=== PATIENT | male | born 1955 | race Caucasian/White ===

== ENCOUNTER → 2019-02-28 | Day surgery (SDC) | payer BC ==
[~2019-02-28] MED LIST: Bacitracin Oint 1 GM U/D Packet ONE; Bupivacaine 0.5% 50 ML MDV ONE; Lidocaine 1% with EPINEPHrine 1:100,000 50 ML MDV ONE; Meropenem 500 MG SDV ONE; Midazolam 1 MG/ML 2 ML SDV ONE; Propofol 200 MG/20 ML SDV ONE; cefTRIAXone 2 GM in Sodium Chloride 0.9% 50 ML IV ONE; fentaNYL 100 MCG/2 ML SDV ONE
--- NOTE | 2019-02-28 19:26 | EDM.PDOC ---
ED HPI GENERAL MEDICAL PROBLEM - General Chief Complaint: Trauma Stated Complaint: DOG BITE VIA [facility] Time Seen by Provider: 02/28/19 19:13 Source of Information: Reports: Patient History Limitations: Reports: No Limitations - History of Present Illness INITIAL COMMENTS - FREE TEXT/NARRATIVE: This gentleman sustained a dog bite to his left forearm just a short while prior to arrival. The animal was his own dog the dog is up-to-date on immunizations the dog is a rescue dog and is uncertain why he decided to attack the patient as well as his . He last ate approximately 2-2:30 he had a salad and some nochos. - Related Data Allergies Allergy/AdvReac Type Severity Reaction Status Date / Time No Known Allergies Allergy Verified 02/28/19 19:19 Home Meds: Home Meds NK [No Known Home Meds] 02/28/19 [History] ED ROS GENERAL - Review of Systems Review Of Systems: ROS reveals no pertinent complaints other than HPI. ED EXAM, ANIMAL BITE - Physical Exam Exam: See Below Exam Limited By: No Limitations General Appearance: Alert, WD/WN, Mild Distress Eye Exam: Bilateral Eye: Normal Inspection Throat/Mouth: Normal Inspection Head: Atraumatic Neck: Normal Inspection Respiratory/Chest: Lungs Clear Cardiovascular: Regular Rate, Rhythm GI/Abdominal: Non-Tender (I think his body is a laxative big deal about) Extremities: Normal Inspection (C negative), Other (There is a laceration to the left forearm the anterior or ventral surface that the level of the intersection of the middle and distal thirds. Its transverse area approximately 4 cm long and extends deeply into the arm. There is a laceration approximately 3 cm long its on the dorsum of the proximal forearm. It also appears to be fairly. Neurovascular and tendon all appears to be intact. He has a good strong handgrip and extends his fingers normally.) Neurological: No Motor/Sensory Deficits Skin Exam: Other (C extremities above) Course - Vital Signs Last Recorded V/S: Last Vital Signs Temp 35.6 C 02/28/19 19:13 Pulse 55 L 02/28/19 19:13 Resp 16 02/28/19 19:13 BP 162/72 H 02/28/19 19:13 Pulse Ox 98 02/28/19 19:13 - Orders/Labs/Meds Orders: Active Orders 24 hr Category Date Time Status BASIC METABOLIC PANEL,BMP [CHEM] Urgent Lab 02/28/19 19:16 Ordered CBC WITH AUTO DIFF [HEME] Urgent Lab 02/28/19 19:16 Ordered cefTRIAXone [Rocephin] 2 gm Med 02/28/19 19:16 Ordered Sodium Chloride 0.9% [Normal Saline] 50 ml IV ONETIME Medication Orders Ceftriaxone Sodium 2 gm/ (Sodium Chloride) 50 mls @ 100 mls/hr IV ONETIME ONE Stop: 02/28/19 19:45 Meds: Medications Generic Name Dose Route Start Last Admin Trade Name Daya PRN Reason Stop Dose Admin Ceftriaxone Sodium 2 gm/ 50 mls @ 100 mls/hr 02/28/19 19:16 Sodium Chloride IV 02/28/19 19:45 ONETIME ONE - Re-Assessments/Exams Free Text/Narrative Re-Assessment/Exam: 02/28/19 19:[address] Martinez. We'll give him 2 g of Rocephin IV and we have called in the OR crew he'll be taken to the OR to wash this thing out. Labs are pending 02/28/19 19:25 Departure - Departure Time of Disposition: 19:31 Disposition: DC/Tfer to Other 70 Clinical Impression: Dog bite of forearm - Discharge Information Forms: ED Department Discharge - My Orders Last 24 Hours: My Active Orders 02/28/19 19:16 BASIC METABOLIC PANEL,BMP [CHEM] Urgent CBC WITH AUTO DIFF [HEME] Urgent cefTRIAXone [Rocephin] 2 gm Sodium Chloride 0.9% [Normal Saline] 50 ml IV ONETIME - Assessment/Plan Last 24 Hours: My Active Orders 02/28/19 19:16 BASIC METABOLIC PANEL,BMP [CHEM] Urgent CBC WITH AUTO DIFF [HEME] Urgent cefTRIAXone [Rocephin] 2 gm Sodium Chloride 0.9% [Normal Saline] 50 ml IV ONETIME
--- NOTE | 2019-03-04 14:29 | OR ---
CORRECTED REPORT DATE OF PROCEDURE: 02/28/2019 PREOPERATIVE DIAGNOSIS: Dog bites involving left forearm and right thumb. OPERATIVE PROCEDURE: Exploration and irrigation of dog bite injuries as follows: 1. Proximal volar left forearm with closure of flexor digitorum superficialis fascia and intermediate closure of subcutaneous tissue and skin (04535, [id number]). 2. Closure of flexor carpi ulnaris fascia and intermediate closure of overlying subcutaneous tissue and the skin of distal volar left forearm (47032, [id number]). 3. Intermediate closure of laceration of skin and subcutaneous tissue of dorsal aspect of left forearm (11476). 4. Closure of laceration of volar aspect of right thumb (94196). ANESTHESIA: Local plus IV sedation. INDICATIONS FOR PROCEDURE: This is a 64-year-old who was involved in a dog bite injury in the areas outlined above earlier today, presented to emergency room, and after evaluation, was felt to be best treated in the operating room. The patient received some IV Rocephin preoperatively. He is up to date on his tetanus status and is to undergo irrigation and closure of the above noted injuries. Potential risks including bleeding and infection were reviewed and the patient wishes to proceed. DETAILS OF PROCEDURE: The patient was taken to the operating room and some IV sedation was administered. Initially, the left forearm area was prepped and draped, and those areas were then irrigated with a meropenem-containing saline solution. Again, more proximal of the volar laceration in the forearm of the underlying fascia of flexor digitorum superficialis was divided. This was closed with a running 3-0 Vicryl stitch and the subcutaneous tissue approximated with some 4-0 Vicryl stitch and the skin with mary. Incisional length in this case was 4.5 cm. The more distal of volar laceration was then similarly addressed. This was little bit more on the ulnar aspect and appeared to be involving the laceration of flexor carpi ulnaris fascia. This was likewise closed with a 3-0 Vicryl stitch, the subcutaneous tissue with 4-0 Vicryl stitch, and skin with mary. The incision in this case was also 4.5 cm in length. On back of the forearm, the patient had a 4.0 cm laceration. This involved the skin and subcutaneous tissue, but no underlying fascia. This was closed with some 4-0 Vicryl stitch deep and mary for the skin. This incision was 4.0 cm. Finally, the patient had a laceration on the volar aspect of the right thumb. The thumb laceration was 2.2cm. This was then prepped and draped and anesthetized with 1% lidocaine mixed with Marcaine and a single deep stitch of 5-0 Vicryl stitch was placed and the skin then closed with 5-0 Prolene stitch. Dressing was applied to each of the incisions, and the patient was taken to the recovery room in satisfactory condition. The patient will be given some Augmentin orally today as well as a dose tomorrow morning and then initiated on a 5-day course of Augmentin 875 mg p.o. b.i.d. The patient lives in the [facility] and will be following up with personal physician regarding the staple and suture removal. Obie Martinez MD /[id number]
== END ==
LOC: JP.ED 19:07 → JP.SDS 19:42
PROVIDERS: ATTEND Surgery
DX: S51.852A Open bite of left forearm, initial encounter (principal); S61.051A Open bite of right thumb without damage to nail, initial encounter; W54.0XXA Bitten by dog, initial encounter
CPT/HCPCS: 12001; 12032; 25260; 36415; 80048; 85025; 96374; 99283; J0696; J2185; J2250; J2704; J3010; J3490; J7050; J2020

== ENCOUNTER 2019-03-04 15:50 | Inpatient (IN) | payer BC ==
[2019-03-04] MEDS ORDERED: Linezolid 600 MG in Premix Bag 1 BAG IV STA (15:52)
[2019-03-04] MEDS ORDERED: Lactated Ringers 1,000 ML IV SCH ×2 (16:00→18:48)
--- NOTE | 2019-03-04 16:21 | EDM.PDOC ---
ED HPI GENERAL MEDICAL PROBLEM - General Chief Complaint: General Stated Complaint: LEFT ARM INFECTION AFTER SURGERY Time Seen by Provider: 03/04/19 15:51 Source of Information: Reports: Patient History Limitations: Reports: No Limitations - History of Present Illness INITIAL COMMENTS - FREE TEXT/NARRATIVE: Dog bite from the 28 of February; went to OR; Given Rocephin and oral Augmentin; Red streaking going up arm, warm and firm currently States he feels "run down". No fever, nausea or vomiting; has some diarrhea attributed to the Augmentin. Sent here from [facility] Onset: Gradual Onset Date: 02/28/19 Location: Reports: Upper Extremity, Left Quality: Reports: Pressure Severity: Severe Improves with: Reports: None Worsens with: Reports: None Associated Symptoms: Reports: Other (fatigue) Treatments TRANSIT SPECIALIST: Reports: Other (see below) (antibiotics) Left Arm Pain Score (Numeric/FACES): 3 - Related Data Allergies Allergy/AdvReac Type Severity Reaction Status Date / Time No Known Allergies Allergy Verified 03/04/19 16:15 Home Meds: Home Meds NK [No Known Home Meds] 02/28/19 [History] Social & Family History - Caffeine Use Caffeine Use: Reports: Coffee Caffeine Use Comment: decaf coffee ED ROS GENERAL - Review of Systems Review Of Systems: See Below Constitutional: Reports: Fatigue Respiratory: Reports: No Symptoms Cardiovascular: Reports: No Symptoms GI/Abdominal: Reports: Diarrhea : Reports: No Symptoms Musculoskeletal: Reports: Arm Pain Skin: Reports: Erythema, Other (warmth) Neurological: Reports: No Symptoms Psychiatric: Reports: No Symptoms ED EXAM, GENERAL - Physical Exam Exam: See Below Exam Limited By: No Limitations General Appearance: Alert, WD/WN, No Apparent Distress Head: Atraumatic, Normocephalic Neck: Supple, Non-Tender, Full Range of Motion Respiratory/Chest: No Respiratory Distress, Lungs Clear, Normal Breath Sounds Cardiovascular: Regular Rate, Rhythm Peripheral Pulses: 4+: Radial (L), Radial (R) GI/Abdominal: Normal Bowel Sounds, Soft, Non-Tender Extremities: Arm Pain, Increased Warmth, Redness Neurological: Alert, Oriented, CN II-XII Intact, Normal Cognition, Normal Gait Psychiatric: Normal Affect, Normal Mood Skin Exam: Erythema, Increased Warmth, Wound/Incision Course - Vital Signs Last Recorded V/S: Last Vital Signs Temp 98.7 F 03/04/19 16:12 Pulse 83 03/04/19 17:30 Resp 16 03/04/19 17:30 BP 158/89 H 03/04/19 17:30 Pulse Ox 97 03/04/19 17:30 - Orders/Labs/Meds Orders: Active Orders 24 hr Category Date Time Status Vital Signs [RC] Q1H Care 03/04/19 15:53 Active CULTURE BLOOD [BC] Urgent Lab 03/04/19 16:00 Received CULTURE BLOOD [BC] Urgent Lab 03/04/19 16:10 Received Clindamycin Phosphate [Cleocin] 900 mg Med 03/04/19 18:00 Active Sodium Chloride 0.9% [Normal Saline] 100 ml IV Q8H Lactated Ringers [Ringers, Lactated] 1,000 ml Med 03/04/19 16:00 Active IV ASDIRECTED Blood Culture x2 Reflex Set [OM.PC] Urgent Oth 03/04/19 15:53 Ordered Medication Orders Lactated Ringer's (Ringers, Lactated) 1,000 mls @ 999 mls/hr IV ASDIRECTED [facility] Last Admin: 03/04/19 16:41 Dose: 999 mls/hr Clindamycin Phosphate 900 mg/ (Sodium Chloride) 106 mls @ 212 mls/hr IV Q8H [facility] Last Admin: 03/04/19 17:56 Dose: 212 mls/hr Labs: Laboratory Tests 03/04/19 03/04/19 03/04/19 Range/Units 16:00 16:00 16:00 WBC 6.0 (4.5-11.0) K/uL RBC 4.69 (4.30-5.90) M/uL Hgb 13.7 (12.0-15.0) g/dL Hct 40.1 (40.0-54.0) % MCV 86 (80-98) fL MCH 29 (27-31) pg MCHC 34 (32-36) % Plt Count 261 (150-400) K/uL Neut % (Auto) 70 H (36-66) % Lymph % (Auto) 15 L (24-44) % [place] % (Auto) 13 H (2-6) % Eos % (Auto) 2 (2-4) % Baso % (Auto) 0 (0-1) % Sodium 140 (140-148) mmol/L Potassium 3.9 (3.6-5.2) mmol/L Chloride 104 (100-108) mmol/L Carbon Dioxide 27 (21-32) mmol/L Anion Gap 8.7 (5.0-14.0) mmol/L BUN 21 H (7-18) mg/dL Creatinine 1.0 (0.8-1.3) mg/dL Est Cr Clr Drug Dosing 77.06 mL/min Estimated GFR (MDRD) > 60 (>60) Glucose 142 H (74-106) mg/dL Lactic Acid 1.4 (0.4-2.0) mmol/L Calcium 9.0 (8.5-10.1) mg/dL Total Bilirubin 0.8 (0.2-1.0) mg/dL AST 85 H (15-37) U/L ALT 198 H (12-78) U/L Alkaline Phosphatase 173 H (46-116) U/L C-Reactive Protein 6.77 H (0.0-0.3) mg/dL Total Protein 7.4 (6.4-8.2) g/dL Albumin 3.4 (3.4-5.0) g/dL Globulin 4.0 H (2.3-3.5) g/dL Albumin/Globulin Ratio 0.9 L (1.2-2.2) Meds: Medications Generic Name Dose Route Start Last Admin Trade Name Freq PRN Reason Stop Dose Admin Lactated Ringer's 1,000 mls @ 999 mls/hr 03/04/19 16:00 03/04/19 16:41 Ringers, Lactated IV 999 mls/hr ASDIRECTED MEGAN Administration Clindamycin Phosphate 900 mg/ 106 mls @ 212 mls/hr 03/04/19 18:00 03/04/19 17 :56 Sodium Chloride IV 212 mls/hr Q8H MEGAN Administration Discontinued Medications Generic Name Dose Route Start Last Admin Trade Name Freq PRN Reason Stop Dose Admin Levofloxacin/Dextrose 750 mg/ 150 mls @ 150 mls/hr 03/04/19 16:30 03/04/19 16 :47 Premix IV 03/04/19 17:29 150 mls/hr ONETIME ONE Administration Departure - Departure Time of Disposition: 18:41 Disposition: Admitted As Inpatient 66 Condition: Fair Clinical Impression: Cellulitis of arm, left - Discharge Information *PRESCRIPTION DRUG MONITORING PROGRAM REVIEWED*: Not Applicable *COPY OF PRESCRIPTION DRUG MONITORING REPORT IN PATIENT BRITTA: Not Applicable - Problem List & Annotations (1) Cellulitis of arm, left SNOMED Code(s): 433373635 Code(s): L03.114 - CELLULITIS OF LEFT UPPER LIMB Status: Acute Priority: Medium Current Visit: Yes (2) Dog bite of forearm SNOMED Code(s): 887193392 Code(s): S51.859A - OPEN BITE OF UNSPECIFIED FOREARM, INITIAL ENCOUNTER; W54.0XXA - BITTEN BY DOG, INITIAL ENCOUNTER Status: Acute Current Visit: No
[2019-03-04] MEDS ORDERED: Levofloxacin/Dextrose 5%-Water 750 MG in Premix Bag 1 BAG IV ONE (16:30)
--- NOTE | 2019-03-04 17:40 | PCM.HP ---
H&P History of Present Illness - General Date of Service: 03/04/19 Admit Problem/Dx: Admission Diagnosis/Problem Admission Diagnosis/Problem Cellulitis Source of Information: Patient, Provider History Limitations: Reports: No Limitations - History of Present Illness Initial Comments - Free Text/Narative: Mr. Hardy is a 64-year-old gentleman who was admitted through the emergency department with cellulitis of his left arm secondary to a dog bite. He was bit by his dog on February 28 and experience significant puncture wounds and laceration. He was seen and evaluated in the emergency department and wounds were surgically closed by Dr. Martinez. He is up-to-date with his tetanus vaccination. After the wounds were closed he was discharged to home on oral antibiotic therapy with Augmentin. Over the past 2 days has developed progressive erythema and swelling around the elbow and into the forearm. He has not had overt temperature elevation but has felt more weak and fatigued. On evaluation in the emergency department he was found to have obvious cellulitis. White blood cell count was normal, CRP elevated. Blood cultures were obtained and he was started on IV antibiotic therapy with levofloxacin and clindamycin. Left Arm Pain Score (Numeric/FACES): 3 - Related Data Allergies/Adverse Reactions: Allergies Allergy/AdvReac Type Severity Reaction Status Date / Time No Known Allergies Allergy Verified 03/04/19 16:15 Home Medications: Home Meds NK [No Known Home Meds] 02/28/19 [History] Past Medical History - Past Surgical History Dermatological Surgical History: Reports: None Social & Family History - Family History Family Medical History: Noncontributory - Tobacco Use Smoking Status *Q: Never Smoker Second Hand Smoke Exposure: No - Caffeine Use Caffeine Use: Reports: Coffee Caffeine Use Comment: decaf coffee - Alcohol Use Days Per Week of Alcohol Use: 3 Number of Drinks Per Day: 1 Total Drinks Per Week: 3 - Recreational Drug Use Recreational Drug Use: No H&P Review of Systems - Review of Systems: Review Of Systems: See Below General: Reports: Malaise, Weakness, Decreased Appetite. Denies: Fever, Chills HEENT: Reports: No Symptoms Pulmonary: Reports: No Symptoms Cardiovascular: Reports: No Symptoms Gastrointestinal: Reports: No Symptoms Genitourinary: Reports: No Symptoms Musculoskeletal: Reports: No Symptoms Skin: Reports: Other (Erythema of the left arm and elbow region, purulent drainage noted from wounds) Psychiatric: Reports: No Symptoms Neurological: Reports: No Symptoms Hematologic/Lymphatic: Reports: No Symptoms Immunologic: Reports: No Symptoms Exam - Exam Exam: See Below - Vital Signs Vital Signs: Last Vital Signs Temp 98.7 F 03/04/19 16:12 Pulse 83 03/04/19 17:30 Resp 16 03/04/19 17:30 BP 158/89 H 03/04/19 17:30 Pulse Ox 97 03/04/19 17:30 Weight: 196 lb 13.965 oz - Exam Quality Assessment: DVT Prophylaxis General: Alert, Oriented, Cooperative, Moderate Distress HEENT: Conjunctiva Clear, Hearing Intact, Mucosa Moist & [place], Posterior Pharynx Clear, Pupils Equal Neck: Supple, Trachea Midline, +2 Carotid Pulse wo Bruit Lungs: Clear to Auscultation, Normal Respiratory Effort Cardiovascular: Regular Rate, Regular Rhythm, Normal S1, Normal S2. No: Systolic Murmur, Diastolic Murmur GI/Abdominal Exam: Soft, Non-Tender, No Organomegaly, No Distention Back Exam: Normal Inspection, Full Range of Motion Extremities: Non-Tender, No Pedal Edema Skin: Other (Erythema left elbow region extending into the forearm, purulent- appearing drainage from wounds) Neurological: Cranial Nerves Intact, Strength Equal Bilateral, Normal Speech, Normal Tone, Sensation Intact. No: Focal Deficit Neuro Extensive - Mental Status: Alert, Oriented x3, Normal Mood/Affect, Normal Cognition, Memory Intact - Patient Data Lab Results Last 24 hrs: Laboratory Results - last 24 hr 03/04/19 03/04/19 03/04/19 Range/Units 16:00 16:00 16:00 WBC 6.0 (4.5-11.0) K/uL RBC 4.69 (4.30-5.90) M/uL Hgb 13.7 (12.0-15.0) g/dL Hct 40.1 (40.0-54.0) % MCV 86 (80-98) fL MCH 29 (27-31) pg MCHC 34 (32-36) % Plt Count 261 (150-400) K/uL Neut % (Auto) 70 H (36-66) % Lymph % (Auto) 15 L (24-44) % [place] % (Auto) 13 H (2-6) % Eos % (Auto) 2 (2-4) % Baso % (Auto) 0 (0-1) % Sodium 140 (140-148) mmol/L Potassium 3.9 (3.6-5.2) mmol/L Chloride 104 (100-108) mmol/L Carbon Dioxide 27 (21-32) mmol/L Anion Gap 8.7 (5.0-14.0) mmol/L BUN 21 H (7-18) mg/dL Creatinine 1.0 (0.8-1.3) mg/dL Est Cr Clr Drug Dosing 77.06 mL/min Estimated GFR (MDRD) > 60 (>60) Glucose 142 H (74-106) mg/dL Lactic Acid 1.4 (0.4-2.0) mmol/L Calcium 9.0 (8.5-10.1) mg/dL Total Bilirubin 0.8 (0.2-1.0) mg/dL AST 85 H (15-37) U/L ALT 198 H (12-78) U/L Alkaline Phosphatase 173 H (46-116) U/L C-Reactive Protein 6.77 H (0.0-0.3) mg/dL Total Protein 7.4 (6.4-8.2) g/dL Albumin 3.4 (3.4-5.0) g/dL Globulin 4.0 H (2.3-3.5) g/dL Albumin/Globulin Ratio 0.9 L (1.2-2.2) Result Diagrams: 03/04/19 16:00 03/04/19 16:00 *Q Meaningful Use (ADM) - VTE Risk Assess *Q Each Risk Factor Represents 1 Point: Obesity ( BMI > 25 kg/m2) Total Score 1 Point Risk Factors: 1 Each Risk Factor Represents 2 Points: Age 60 - 74 Years Total Score 2 Point Risk Factors: 2 Each Risk Factor Represents 3 Points: None Total Score 3 Point Risk Factors: 0 Each Risk Factor Represents 5 Points: None Total Score 5 Point Risk Factors: 0 Venous Thromboembolism Risk Factor Score *Q: 3 Problem List Initiated/Reviewed/Updated: Yes Orders Last 24hrs: Active Orders 24 hr Category Date Time Status Patient Status Manage Transfer [TRANSFER] Routine ADT 03/04/19 17:35 Ordered Vital Signs [RC] Q1H Care 03/04/19 15:53 Active CULTURE BLOOD [BC] Urgent Lab 03/04/19 16:00 Received CULTURE BLOOD [BC] Urgent Lab 03/04/19 16:10 Received Clindamycin Phosphate [Cleocin] 900 mg Med 03/04/19 18:00 Active Sodium Chloride 0.9% [Normal Saline] 100 ml IV Q8H Lactated Ringers [Ringers, Lactated] 1,000 ml Med 03/04/19 16:00 Active IV ASDIRECTED Blood Culture x2 Reflex Set [OM.PC] Urgent Oth 03/04/19 15:53 Ordered Resuscitation Status Routine Resus Stat 03/04/19 17:36 Ordered Medication Orders Lactated Ringer's (Ringers, Lactated) 1,000 mls @ 999 mls/hr IV ASDIRECTED [facility] Last Admin: 03/04/19 16:41 Dose: 999 mls/hr Clindamycin Phosphate 900 mg/ (Sodium Chloride) 106 mls @ 212 mls/hr IV Q8H [facility] Assessment/Plan Comment:: ASSESSMENT AND PLAN CELLULITIS LEFT ARM- secondary to dog bite, status post surgical repair wounds 4 days ago. Cellulitis has developed over the past 48 hours, appears to have drainage from surgical wounds. No obvious palpable areas of abscess. -Blood cultures pending -IV fluids for hydration -IV clindamycin and levofloxacin, pending culture results -Surgical follow-up per Dr. Martinez in a.m. MAINTENANCE ISSUES -DVT prophylaxis; Lovenox 40 mg subcutaneous daily -GI prophylaxis; not indicated -Camacho catheter; not indicated -Nutrition; regular diet -Nicotine dependence; not required CODE STATUS-FULL CODE ADMISSION STATUS-patient will be admitted to inpatient status, expect at least a 2 night hospital stay for evaluation and management of problems as outlined above. At the time of this admission I do not reasonably expected evaluation and management of this problem will require more than a 96 hour hospital stay. DISPOSITION-anticipate discharge to home after the hospital stay. PRIMARY CARE PROVIDER-he is from the [facility] and receives health care there
[2019-03-04] MEDS ORDERED: Clindamycin Phosphate 900 MG in Sodium Chloride 0.9% 100 ML IV SCH (18:00)
[2019-03-04] MEDS ORDERED: Polyethylene Glycol 3350 Powder 17 GM Packet PO PRN (18:48)
[2019-03-04] MEDS ORDERED: oxyCODONE 5 MG Tab PO PRN (18:48)
[2019-03-04] MEDS ORDERED: Ondansetron 4 MG/2 ML SDV IV PRN (18:48)
[2019-03-04] MEDS ORDERED: Sodium Chloride 0.9% 10 ML Syringe FLUSH PRN (18:48)
[2019-03-04] MEDS ORDERED: Acetaminophen 325 MG Tab PO PRN (18:48)
[2019-03-04] MEDS: Lactobacillus Rhamnosus GG (Probiotic) Cap PO SCH (19:50)
[2019-03-04] MEDS: Enoxaparin 40 MG/0.4 ML Syringe SUBCUT SCH (19:50)
[2019-03-04] MEDS: Bacitracin Oint 28.35 GM Tube TOP PRN (20:24)
[2019-03-05] MEDS: Clindamycin Phosphate 900 MG in Sodium Chloride 0.9% 100 ML IV SCH ×3 (02:06→18:29)
[2019-03-05] MEDS: Enoxaparin 40 MG/0.4 ML Syringe SUBCUT SCH (03:16)
[2019-03-05] MEDS: Lactobacillus Rhamnosus GG (Probiotic) Cap PO SCH ×3 (03:17→20:23)
[2019-03-05] MEDS: Bacitracin Oint 28.35 GM Tube TOP PRN (08:31)
--- NOTE | 2019-03-05 08:36 | PN ---
DATE OF SERVICE: 03/05/2019 SUBJECTIVE: Bruce was admitted for cellulitis in his left arm. Yesterday, he did have a dog bite, left arm, which was closed using yusef, and he also had a bite on his right thumb. He did develop significant cellulitis, currently on Levaquin and clindamycin. He reports his pain is controlled. Afebrile. REVIEW OF SYSTEMS: Remainder of review of systems negative for any pertinent positives and negatives. OBJECTIVE: GENERAL: Bruce Hardy is a 64-year-old male. He is alert and orientated. VITAL SIGNS: TPR; 97.7, 83, 18. Blood pressure 172/84. HEENT: Negative. NECK: Supple. HEART: Regular rate and rhythm. LUNGS: Clear. EXTREMITIES: Left arm cellulitis is resolving, shows minimal improvement according to the areas marked. Dressing was taken down by Obie Martinez M.D. Yusef intact in the bite choe. There is no drainage from those areas. Lower extremities without peripheral edema. ASSESSMENT: Cellulitis, left arm, secondary to dog bite. PLAN: 1. Dressing off, december shower. 2. Change dressing once daily and p.r.n. 3. Continue antibiotic therapy per Fabricio Marsh M.D. 4. We will evaluate p.r.n. or in a.m. Peggy Purvis PA-C /[id number]
[2019-03-05] MEDS ORDERED: Magnesium Sulfate/Water 2 GM in Premix Bag 1 BAG IV ONE (10:00)
--- NOTE | 2019-03-05 13:04 | PCM.PN ---
- General Info Date of Service: 03/05/19 Subjective Update: Mr. Hardy has been stable since admission, vital signs have been good and he has remained afebrile. White blood cell count remains within normal range, he reports less pain in the arm. There has been no significant improvement in the area of cellulitis since yesterday but the involved skin appears to be less red and is certainly less tender to palpation. - Review of Systems General: Denies: Fever, Weakness, Chills Pulmonary: Reports: No Symptoms Cardiovascular: Reports: No Symptoms Gastrointestinal: Reports: No Symptoms - Patient Data Vitals - Most Recent: Last Vital Signs Temp 97.7 F 03/05/19 10:52 Pulse 72 03/05/19 10:52 Resp 18 03/05/19 10:52 BP 144/74 H 03/05/19 10:52 Pulse Ox 98 03/05/19 10:52 Weight - Most Recent: 196 lb 13.965 oz I&O - Last 24 Hours: Intake & Output 03/04/19 03/05/19 03/05/19 22:59 06:59 14:59 Intake Total 2248 726 Balance 2248 726 Lab Results Last 24 Hours: Laboratory Results - last 24 hr 03/04/19 03/04/19 03/04/19 Range/Units 16:00 16:00 16:00 WBC 6.0 (4.5-11.0) K/uL RBC 4.69 (4.30-5.90) M/uL Hgb 13.7 (12.0-15.0) g/dL Hct 40.1 (40.0-54.0) % MCV 86 (80-98) fL MCH 29 (27-31) pg MCHC 34 (32-36) % Plt Count 261 (150-400) K/uL Neut % (Auto) 70 H (36-66) % Lymph % (Auto) 15 L (24-44) % [place] % (Auto) 13 H (2-6) % Eos % (Auto) 2 (2-4) % Baso % (Auto) 0 (0-1) % Sodium 140 (140-148) mmol/L Potassium 3.9 (3.6-5.2) mmol/L Chloride 104 (100-108) mmol/L Carbon Dioxide 27 (21-32) mmol/L Anion Gap 8.7 (5.0-14.0) mmol/L BUN 21 H (7-18) mg/dL Creatinine 1.0 (0.8-1.3) mg/dL Est Cr Clr Drug Dosing 77.06 mL/min Estimated GFR (MDRD) > 60 (>60) Glucose 142 H (74-106) mg/dL Lactic Acid 1.4 (0.4-2.0) mmol/L Calcium 9.0 (8.5-10.1) mg/dL Magnesium (1.8-2.4) mg/dL Total Bilirubin 0.8 (0.2-1.0) mg/dL AST 85 H (15-37) U/L ALT 198 H (12-78) U/L Alkaline Phosphatase 173 H (46-116) U/L C-Reactive Protein 6.77 H (0.0-0.3) mg/dL Total Protein 7.4 (6.4-8.2) g/dL Albumin 3.4 (3.4-5.0) g/dL Globulin 4.0 H (2.3-3.5) g/dL Albumin/Globulin Ratio 0.9 L (1.2-2.2) 03/05/19 03/05/19 Range/Units 05:10 05:10 WBC 6.5 (4.5-11.0) K/uL RBC 4.44 (4.30-5.90) M/uL Hgb 13.1 (12.0-15.0) g/dL Hct 38.2 L (40.0-54.0) % MCV 86 (80-98) fL MCH 30 (27-31) pg MCHC 34 (32-36) % Plt Count 259 (150-400) K/uL Neut % (Auto) 63 (36-66) % Lymph % (Auto) 21 L (24-44) % [place] % (Auto) 13 H (2-6) % Eos % (Auto) 3 (2-4) % Baso % (Auto) 0 (0-1) % Sodium 139 L (140-148) mmol/L Potassium 4.4 (3.6-5.2) mmol/L Chloride 104 (100-108) mmol/L Carbon Dioxide 26 (21-32) mmol/L Anion Gap 13.4 (5.0-14.0) mmol/L BUN 20 H (7-18) mg/dL Creatinine 1.0 (0.8-1.3) mg/dL Est Cr Clr Drug Dosing 77.06 mL/min Estimated GFR (MDRD) > 60 (>60) Glucose 113 H (74-106) mg/dL Lactic Acid (0.4-2.0) mmol/L Calcium 9.3 (8.5-10.1) mg/dL Magnesium 1.7 L (1.8-2.4) mg/dL Total Bilirubin (0.2-1.0) mg/dL AST (15-37) U/L ALT (12-78) U/L Alkaline Phosphatase (46-116) U/L C-Reactive Protein (0.0-0.3) mg/dL Total Protein (6.4-8.2) g/dL Albumin (3.4-5.0) g/dL Globulin (2.3-3.5) g/dL Albumin/Globulin Ratio (1.2-2.2) Med Orders - Current: Current Medications Acetaminophen (Tylenol) 650 mg PO Q4H PRN PRN Reason: Pain (Mild 1-3)/fever Bacitracin (Bacitracin Oint) 0 gm TOP TID PRN PRN Reason: Inflammation Last Admin: 03/05/19 08:31 Dose: 1 applic Enoxaparin Sodium (Lovenox) 40 mg SUBCUT Q24H [facility] Clindamycin Phosphate 900 mg/ (Sodium Chloride) 106 mls @ 200 mls/hr IV Q8H [facility] Last Admin: 03/05/19 09:39 Dose: 200 mls/hr Levofloxacin/Dextrose 750 mg/ (Premix) 150 mls @ 100 mls/hr IV Q24H [facility] Lactobacillus Rhamnosus (Culturelle) 1 cap PO BID [facility] Last Admin: 03/05/19 08:32 Dose: 1 cap Ondansetron HCl (Zofran) 4 mg IV Q4H PRN PRN Reason: Nausea/Vomiting Oxycodone HCl (Oxycodone) 5 mg PO Q4H PRN PRN Reason: Pain (moderate 4-6) Polyethylene Glycol (Miralax) 17 gm PO DAILY PRN PRN Reason: Constipation Sodium Chloride (Saline Flush) 10 ml FLUSH ASDIRECTED PRN PRN Reason: Keep Vein Open Discontinued Medications Enoxaparin Sodium (Lovenox) 40 mg SUBCUT DAILY [facility] Last Admin: 03/05/19 03:16 Dose: Not Given Lactated Ringer's (Ringers, Lactated) 1,000 mls @ 999 mls/hr IV ASDIRECTED [facility] Last Admin: 03/04/19 16:41 Dose: 999 mls/hr Levofloxacin/Dextrose 750 mg/ (Premix) 150 mls @ 150 mls/hr IV ONETIME ONE Stop: 03/04/19 17:29 Last Admin: 03/04/19 16:47 Dose: 150 mls/hr Clindamycin Phosphate 900 mg/ (Sodium Chloride) 106 mls @ 212 mls/hr IV Q8H [facility] Last Admin: 03/04/19 17:56 Dose: 212 mls/hr Lactated Ringer's (Ringers, Lactated) 1,000 mls @ 125 mls/hr IV ASDIRECTED [facility] Last Admin: 03/05/19 04:48 Dose: 125 mls/hr Magnesium Sulfate 2 gm/ Premix 50 mls @ 25 mls/hr IV ONETIME ONE Stop: 03/05/19 11:59 Last Admin: 03/05/19 10:21 Dose: 25 mls/hr - Exam Quality Assessment: DVT Prophylaxis General: Alert, Oriented, Cooperative, Mild Distress Lungs: Clear to Auscultation, Normal Respiratory Effort Cardiovascular: Regular Rate, Regular Rhythm, No Murmurs GI/Abdominal Exam: Soft, Non-Tender, No Organomegaly, No Distention Extremities: Arm Pain, Increased Warmth, Redness - Problem List Review Problem List Initiated/Reviewed/Updated: Yes - My Orders Last 24 Hours: My Active Orders 03/04/19 17:36 Resuscitation Status Routine 03/04/19 18:48 Patient Status [ADT] Routine Ambulate [RC] QID Intake and Output [RC] QSHIFT Notify Provider Consults [RC] ASDIRECTED Notify Provider Vital Signs [RC] ASDIRECTED Oxygen Therapy [RC] PRN Peripheral IV Care [RC] . DIRECTED Up ad Joseline [RC] ASDIRECTED Up to Chair [RC] QID Vital Signs [RC] Q4H Consult to Physician [CONS] Routine Acetaminophen [Tylenol] 650 mg PO Q4H PRN Lactobacillus Rhamnosus GG [Culturelle] 1 cap PO BID Ondansetron [Zofran] 4 mg IV Q4H PRN Polyethylene Glycol 3350 [MiraLAX] 17 gm PO DAILY PRN Sodium Chloride 0.9% [Saline Flush] 10 ml FLUSH ASDIRECTED PRN oxyCODONE 5 mg PO Q4H PRN Peripheral IV Insertion Adult [OM.PC] Routine 03/04/19 Dinner Regular Diet [DIET] 03/05/19 02:00 Clindamycin Phosphate [Cleocin] 900 mg Sodium Chloride 0.9% [Normal Saline] 100 ml IV Q8H 03/05/19 12:59 Convert IV to Saline Lock [OM.PC] Routine 03/05/19 17:00 Levofloxacin/Dextrose 5%-Water [Levaquin in D5W 750 MG/150 ML] 750 mg Premix Bag 1 bag IV Q24H 03/05/19 18:00 Enoxaparin [Lovenox] 40 mg SUBCUT Q24H 03/06/19 05:00 BASIC METABOLIC PANEL,BMP [CHEM] Timed MAGNESIUM [CHEM] Timed - Plan Plan:: ASSESSMENT AND PLAN CELLULITIS LEFT ARM- secondary to dog bite, status post surgical repair wounds 5 days ago. Modest improvement with less erythema and tenderness to palpation. -Blood cultures pending -Saline lock IV -IV clindamycin and levofloxacin, pending culture results -Surgical follow-up per Dr. Martinez MAINTENANCE ISSUES -DVT prophylaxis; Lovenox 40 mg subcutaneous daily -GI prophylaxis; not indicated -Camacho catheter; not indicated -Nutrition; regular diet -Nicotine dependence; not required CODE STATUS-FULL CODE ADMISSION STATUS-patient will be admitted to inpatient status, expect at least a 2 night hospital stay for evaluation and management of problems as outlined above. At the time of this admission I do not reasonably expected evaluation and management of this problem will require more than a 96 hour hospital stay. DISPOSITION-anticipate discharge to home after the hospital stay. PRIMARY CARE PROVIDER-he is from the [facility] and receives health care there
[2019-03-05] MEDS: Levofloxacin/Dextrose 5%-Water 750 MG in Premix Bag 1 BAG IV SCH (16:48)
[2019-03-05] MEDS ORDERED: Enoxaparin 40 MG/0.4 ML Syringe SUBCUT SCH (18:00)
[2019-03-06] MEDS: Clindamycin Phosphate 900 MG in Sodium Chloride 0.9% 100 ML IV SCH ×3 (01:41→18:35)
--- NOTE | 2019-03-06 09:04 | PN ---
DATE OF SERVICE: 03/06/2019 SUBJECTIVE: Bruce states his pain is controlled. He has 1 area from his left forearm incision that has drained very minimally on the 4x4 dressing. Dressing was taken down by Obie Martinez MD. He can leave it open to air. Pain is controlled. Area of cellulitis remains to be pink, a little bit less swollen. The area shows minimal improvement of pinkness in the marked area. REVIEW OF SYSTEMS: Remainder of review of systems negative for any pertinent positives and negatives. OBJECTIVE: GENERAL: Bruce Hardy is a 64-year-old male. VITAL SIGNS: TPR 97.2, 81, 16 and blood pressure 138/80. HEENT: Negative. NECK: Supple. HEART: Regular rate and rhythm. LUNGS: Clear. EXTREMITIES: Left arm remains about the same. Yusef intact. There is minimal drainage from 1 of stapled incision. Lower extremities without peripheral edema. ASSESSMENT: Cellulitis, left arm secondary to dog bite. PLAN: 1. May leave dressings off, open to air. 2. We will evaluate p.r.n. or in a.m. Peggy Purvis PA-C /[id number]
[2019-03-06] MEDS: Lactobacillus Rhamnosus GG (Probiotic) Cap PO SCH ×2 (09:07→21:01)
--- NOTE | 2019-03-06 14:27 | PCM.PN ---
- General Info Date of Service: 03/06/19 Subjective Update: Mr. Hardy has remained stable over the last 24 hours with no significant temperature elevation and stable vital signs. He notes less pain and swelling of the left arm over the past few days. Functional Status: Reports: Tolerating Diet, Ambulating, Urinating - Review of Systems General: Denies: Fever, Chills Pulmonary: Reports: No Symptoms Cardiovascular: Reports: No Symptoms Gastrointestinal: Reports: No Symptoms Skin: Reports: Other (Erythema swelling left forearm and elbow region) - Patient Data Vitals - Most Recent: Last Vital Signs Temp 96.2 F 03/06/19 10:42 Pulse 66 03/06/19 10:42 Resp 16 03/06/19 10:42 BP 119/75 03/06/19 10:42 Pulse Ox 97 03/06/19 10:42 Weight - Most Recent: 196 lb 13.965 oz I&O - Last 24 Hours: Intake & Output 03/05/19 03/06/19 03/06/19 22:59 06:59 14:59 Intake Total 1026 340 706 Balance 1026 340 706 Lab Results Last 24 Hours: Laboratory Results - last 24 hr 03/06/19 Range/Units 05:49 Sodium 140 (140-148) mmol/L Potassium 4.3 (3.6-5.2) mmol/L Chloride 105 (100-108) mmol/L Carbon Dioxide 26 (21-32) mmol/L Anion Gap 9.2 (5.0-14.0) mmol/L BUN 19 H (7-18) mg/dL Creatinine 1.1 (0.8-1.3) mg/dL Est Cr Clr Drug Dosing 70.05 mL/min Estimated GFR (MDRD) > 60 (>60) Glucose 109 H (74-106) mg/dL Calcium 8.9 (8.5-10.1) mg/dL Magnesium 1.8 (1.8-2.4) mg/dL [place] Results Last 24 Hours: Microbiology 03/04/19 16:10 Aerobic Blood Culture - Preliminary Blood - Arm, Right NO GROWTH AFTER 1 DAY Anaerobic Blood Culture - Preliminary NO GROWTH AFTER 1 DAY 03/04/19 16:00 Aerobic Blood Culture - Preliminary Blood - Arm, Right NO GROWTH AFTER 1 DAY Anaerobic Blood Culture - Preliminary NO GROWTH AFTER 1 DAY Med Orders - Current: Current Medications Acetaminophen (Tylenol) 650 mg PO Q4H PRN PRN Reason: Pain (Mild 1-3)/fever Bacitracin (Bacitracin Oint) 0 gm TOP TID PRN PRN Reason: Inflammation Last Admin: 03/05/19 08:31 Dose: 1 applic Clindamycin Phosphate 900 mg/ (Sodium Chloride) 106 mls @ 200 mls/hr IV Q8H [facility] Last Admin: 03/06/19 10:00 Dose: 200 mls/hr Levofloxacin/Dextrose 750 mg/ (Premix) 150 mls @ 100 mls/hr IV Q24H [facility] Last Admin: 03/05/19 16:48 Dose: 100 mls/hr Lactobacillus Rhamnosus (Culturelle) 1 cap PO BID [facility] Last Admin: 03/06/19 09:07 Dose: 1 cap Ondansetron HCl (Zofran) 4 mg IV Q4H PRN PRN Reason: Nausea/Vomiting Oxycodone HCl (Oxycodone) 5 mg PO Q4H PRN PRN Reason: Pain (moderate 4-6) Polyethylene Glycol (Miralax) 17 gm PO DAILY PRN PRN Reason: Constipation Sodium Chloride (Saline Flush) 10 ml FLUSH ASDIRECTED PRN PRN Reason: Keep Vein Open Discontinued Medications Enoxaparin Sodium (Lovenox) 40 mg SUBCUT DAILY [facility] Last Admin: 03/05/19 03:16 Dose: Not Given Enoxaparin Sodium (Lovenox) 40 mg SUBCUT Q24H [facility] Last Admin: 03/05/19 17:00 Dose: Not Given Lactated Ringer's (Ringers, Lactated) 1,000 mls @ 999 mls/hr IV ASDIRECTED [facility] Last Admin: 03/04/19 16:41 Dose: 999 mls/hr Levofloxacin/Dextrose 750 mg/ (Premix) 150 mls @ 150 mls/hr IV ONETIME ONE Stop: 03/04/19 17:29 Last Admin: 03/04/19 16:47 Dose: 150 mls/hr Clindamycin Phosphate 900 mg/ (Sodium Chloride) 106 mls @ 212 mls/hr IV Q8H [facility] Last Admin: 03/04/19 17:56 Dose: 212 mls/hr Lactated Ringer's (Ringers, Lactated) 1,000 mls @ 125 mls/hr IV ASDIRECTED [facility] Last Admin: 03/05/19 04:48 Dose: 125 mls/hr Magnesium Sulfate 2 gm/ Premix 50 mls @ 25 mls/hr IV ONETIME ONE Stop: 03/05/19 11:59 Last Admin: 03/05/19 10:21 Dose: 25 mls/hr - Exam Quality Assessment: DVT Prophylaxis General: Alert, Oriented, Cooperative, No Acute Distress Lungs: Clear to Auscultation, Normal Respiratory Effort Cardiovascular: Regular Rate, Regular Rhythm, No Murmurs GI/Abdominal Exam: Soft, Non-Tender, No Organomegaly, No Distention Extremities: Increased Warmth, Redness, Other (Area of cellulitis slowly receding with less erythema and warmth.) - Problem List Review Problem List Initiated/Reviewed/Updated: Yes - My Orders Last 24 Hours: My Active Orders 03/05/19 17:00 Levofloxacin/Dextrose 5%-Water [Levaquin in D5W 750 MG/150 ML] 750 mg Premix Bag 1 bag IV Q24H SCD [Sequential Compression Device] [OM.PC] Routine - Plan Plan:: ASSESSMENT AND PLAN CELLULITIS LEFT ARM- secondary to dog bite, status post surgical repair wounds 6 days ago. Further improvement in cellulitis over the last 24 hours with less swelling, erythema, and warmth -Blood cultures pending -Saline lock IV -IV clindamycin and levofloxacin, pending culture results -Surgical follow-up per Dr. Martinez MAINTENANCE ISSUES -DVT prophylaxis; Lovenox 40 mg subcutaneous daily -GI prophylaxis; not indicated -Camacho catheter; not indicated -Nutrition; regular diet -Nicotine dependence; not required CODE STATUS-FULL CODE ADMISSION STATUS-patient will be admitted to inpatient status, expect at least a 2 night hospital stay for evaluation and management of problems as outlined above. At the time of this admission I do not reasonably expected evaluation and management of this problem will require more than a 96 hour hospital stay. DISPOSITION-anticipate discharge to home after the hospital stay. PRIMARY CARE PROVIDER-he is from the [facility] and receives health care there
[2019-03-06] MEDS: Levofloxacin/Dextrose 5%-Water 750 MG in Premix Bag 1 BAG IV SCH (17:01)
[2019-03-07] MEDS: Clindamycin Phosphate 900 MG in Sodium Chloride 0.9% 100 ML IV SCH ×2 (01:43→10:21)
--- NOTE | 2019-03-07 08:10 | PN ---
DATE OF SERVICE: 03/07/2019 SUBJECTIVE: Bruce cellulitis in his left arm is resolving, less warm and less swollen and the area of redness is decreasing. Denies any pain. Mary intact and healing well and sutures in right thumb are dry and intact. OBJECTIVE: VITAL SIGNS: TPR 96.8, 66, 18. Blood pressure 162/90 it had been running 145/71, 134/78, and 143/80. ASSESSMENT: Cellulitis, left arm secondary to dog bite 02/28/2019. PLAN: Remove mary left arm and secure with Steri-Strips. Remove sutures from right thumb. We will evaluate p.r.n. or in a.m. Peggy Purvis PA-C /[id number]
[2019-03-07] MEDS: Lactobacillus Rhamnosus GG (Probiotic) Cap PO SCH ×2 (08:37→21:32)
--- NOTE | 2019-03-07 12:28 | PCM.PN ---
- General Info Date of Service: 03/07/19 Subjective Update: Mr. Hardy been stable since yesterday with no significant temperature elevation and good vital signs. Unfortunately there does appear to be some spread of erythema beyond the original margins into the upper arm. He otherwise is been feeling well with good appetite and has been out walking in the hallways on a regular basis. Functional Status: Reports: Tolerating Diet, Ambulating, Urinating - Review of Systems General: Denies: Fever, Chills Pulmonary: Reports: No Symptoms Cardiovascular: Reports: No Symptoms Gastrointestinal: Reports: No Symptoms - Patient Data Vitals - Most Recent: Last Vital Signs Temp 96.1 F 03/07/19 11:53 Pulse 66 03/07/19 11:53 Resp 16 03/07/19 11:53 BP 142/77 H 03/07/19 11:53 Pulse Ox 100 03/07/19 11:53 Weight - Most Recent: 196 lb 13.965 oz I&O - Last 24 Hours: Intake & Output 03/06/19 03/07/19 03/07/19 22:59 06:59 14:59 Intake Total 656 Balance 656 [place] Results Last 24 Hours: Microbiology 03/04/19 16:10 Aerobic Blood Culture - Preliminary Blood - Arm, Right NO GROWTH AFTER 2 DAYS Anaerobic Blood Culture - Preliminary NO GROWTH AFTER 2 DAYS 03/04/19 16:00 Aerobic Blood Culture - Preliminary Blood - Arm, Right NO GROWTH AFTER 2 DAYS Anaerobic Blood Culture - Preliminary NO GROWTH AFTER 2 DAYS Med Orders - Current: Current Medications Acetaminophen (Tylenol) 650 mg PO Q4H PRN PRN Reason: Pain (Mild 1-3)/fever Last Admin: 03/06/19 15:22 Dose: 650 mg Bacitracin (Bacitracin Oint) 0 gm TOP TID PRN PRN Reason: Inflammation Last Admin: 03/05/19 08:31 Dose: 1 applic Meropenem 1 gm/ Sodium (Chloride) 100 mls @ 200 mls/hr IV Q8H [facility] Lactobacillus Rhamnosus (Culturelle) 1 cap PO BID [facility] Last Admin: 03/07/19 08:37 Dose: 1 cap Ondansetron HCl (Zofran) 4 mg IV Q4H PRN PRN Reason: Nausea/Vomiting Oxycodone HCl (Oxycodone) 5 mg PO Q4H PRN PRN Reason: Pain (moderate 4-6) Polyethylene Glycol (Miralax) 17 gm PO DAILY PRN PRN Reason: Constipation Sodium Chloride (Saline Flush) 10 ml FLUSH ASDIRECTED PRN PRN Reason: Keep Vein Open Vancomycin HCl (Vancomycin) 1 gm IV .PHARMACY TO DOSE [facility] Discontinued Medications Enoxaparin Sodium (Lovenox) 40 mg SUBCUT DAILY [facility] Last Admin: 03/05/19 03:16 Dose: Not Given Enoxaparin Sodium (Lovenox) 40 mg SUBCUT Q24H [facility] Last Admin: 03/05/19 17:00 Dose: Not Given Lactated Ringer's (Ringers, Lactated) 1,000 mls @ 999 mls/hr IV ASDIRECTED [facility] Last Admin: 03/04/19 16:41 Dose: 999 mls/hr Levofloxacin/Dextrose 750 mg/ (Premix) 150 mls @ 150 mls/hr IV ONETIME ONE Stop: 03/04/19 17:29 Last Admin: 03/04/19 16:47 Dose: 150 mls/hr Clindamycin Phosphate 900 mg/ (Sodium Chloride) 106 mls @ 212 mls/hr IV Q8H [facility] Last Admin: 03/04/19 17:56 Dose: 212 mls/hr Clindamycin Phosphate 900 mg/ (Sodium Chloride) 106 mls @ 200 mls/hr IV Q8H [facility] Last Admin: 03/07/19 10:21 Dose: 200 mls/hr Lactated Ringer's (Ringers, Lactated) 1,000 mls @ 125 mls/hr IV ASDIRECTED [facility] Last Admin: 03/05/19 04:48 Dose: 125 mls/hr Levofloxacin/Dextrose 750 mg/ (Premix) 150 mls @ 100 mls/hr IV Q24H [facility] Last Admin: 03/06/19 17:01 Dose: 100 mls/hr Magnesium Sulfate 2 gm/ Premix 50 mls @ 25 mls/hr IV ONETIME ONE Stop: 03/05/19 11:59 Last Admin: 03/05/19 10:21 Dose: 25 mls/hr - Exam Quality Assessment: DVT Prophylaxis General: Alert, Oriented, Cooperative, Mild Distress Lungs: Clear to Auscultation, Normal Respiratory Effort Cardiovascular: Regular Rate, Regular Rhythm, No Murmurs GI/Abdominal Exam: Soft, Non-Tender, No Organomegaly, No Distention Extremities: Increased Warmth, Redness, Other (Erythema has spread into the upper arm beyond the area of her original involvement) Skin: Warm, Dry - Problem List Review Problem List Initiated/Reviewed/Updated: Yes - My Orders Last 24 Hours: My Active Orders 03/07/19 12:30 Meropenem [Merrem] 1 gm Sodium Chloride 0.9% [Normal Saline] 100 ml IV Q8H 03/07/19 13:00 Vancomycin 1 gm IV .PHARMACY TO DOSE - Plan Plan:: ASSESSMENT AND PLAN CELLULITIS LEFT ARM- secondary to dog bite, status post surgical repair wounds 6 days ago. Erythema in the forearm has significantly improved with improvement in swelling. There has been some advancement of erythema beyond the original borders into the upper arm. Blood cultures have remained negative to this point -Blood cultures pending -Saline lock IV -Discontinue IV clindamycin and levofloxacin -Start IV vancomycin and meropenem -Surgical follow-up per Dr. Martinez MAINTENANCE ISSUES -DVT prophylaxis; Lovenox 40 mg subcutaneous daily -GI prophylaxis; not indicated -Camacho catheter; not indicated -Nutrition; regular diet -Nicotine dependence; not required CODE STATUS-FULL CODE ADMISSION STATUS-patient will be admitted to inpatient status, expect at least a 2 night hospital stay for evaluation and management of problems as outlined above. At the time of this admission I do not reasonably expected evaluation and management of this problem will require more than a 96 hour hospital stay. DISPOSITION-anticipate discharge to home after the hospital stay. PRIMARY CARE PROVIDER-he is from the [facility] and receives health care there
[2019-03-07] MEDS ORDERED: Vancomycin 1 GM SDV IV SCH (13:00)
[2019-03-07] MEDS: Meropenem 1 GM in Sodium Chloride 0.9% 100 ML IV SCH ×2 (14:18→21:27)
[2019-03-08] MEDS: Vancomycin 1.3 GM in Sodium Chloride 0.9% 250 ML IV SCH ×2 (02:47→13:31)
[2019-03-08] MEDS: Meropenem 1 GM in Sodium Chloride 0.9% 100 ML IV SCH ×3 (04:30→21:04)
--- NOTE | 2019-03-08 08:25 | PN ---
DATE OF SERVICE: 03/08/2019 SUBJECTIVE: Bruce had his antibiotics changed yesterday. His IV clindamycin and levofloxacin was discontinued. He was started on IV vancomycin and meropenem. The erythema in the forearm has showed some improvement, but there is an increase of swelling above the original border in upper arm. He did have his mary removed. Mid incision left arm is draining. He has been afebrile. Pain has been controlled. OBJECTIVE: GENERAL: Bruce Hardy is a 64-year-old male. He is alert and orientated. VITAL SIGNS: TPR is 96.4, 68, 18, blood pressure 159/76. HEENT: Negative. NECK: Supple. HEART: Regular rate and rhythm. LUNGS: Clear. ABDOMEN: Deferred. EXTREMITIES: Left forearm incision was opened up by Obie Martinez MD. Culture and sensitivity were obtained. Open laceration was packed with edge of a 4 x 4 and re-dressed. A stat Gram stain was done and showed gram positive cocci rare. ASSESSMENT: Cellulitis, left arm secondary to dog bite on 02/28/2019. PLAN: 1. Cellulitis, left arm. One laceration opened up with a stat culture showing gram- positive cocci with rare. 2. Change dressing twice daily, left arm. Remove wound packing. Dressed with 4 x 4, putting enough 4 x 4 in that open area to hold the wound/laceration open. Cover with gauze, Kerlix, and tape. Change dressing b.i.d. and p.r.n. We will evaluate p.r.n. or in a.mConor Purvis PA-C /[id number]
[2019-03-08] MEDS: Lactobacillus Rhamnosus GG (Probiotic) Cap PO SCH ×2 (09:37→21:04)
--- NOTE | 2019-03-08 20:39 | PCM.PN ---
- General Info Date of Service: 03/08/19 Subjective Update: Mr. Hardy has been stable since yesterday, afebrile with good vital signs. There is been very good improvement in cellulitis since yesterday with change in antibiotic therapy. One of his wounds was opened today by Dr. Martinez, culture pending. Functional Status: Reports: Tolerating Diet, Ambulating, Urinating - Review of Systems General: Denies: Fever, Chills Pulmonary: Reports: No Symptoms Cardiovascular: Reports: No Symptoms Gastrointestinal: Reports: No Symptoms - Patient Data Vitals - Most Recent: Last Vital Signs Temp 97.9 F 03/08/19 20:21 Pulse 79 03/08/19 20:21 Resp 16 03/08/19 20:21 BP 136/75 03/08/19 20:21 Pulse Ox 98 03/08/19 20:21 Weight - Most Recent: 196 lb 13.965 oz I&O - Last 24 Hours: Intake & Output 03/08/19 03/08/19 03/08/19 06:59 14:59 22:59 Intake Total 1350 350 800 Balance 1350 350 800 [place] Results Last 24 Hours: Microbiology 03/04/19 16:10 Aerobic Blood Culture - Preliminary Blood - Arm, Right NO GROWTH AFTER 4 DAYS Anaerobic Blood Culture - Preliminary NO GROWTH AFTER 4 DAYS 03/04/19 16:00 Aerobic Blood Culture - Preliminary Blood - Arm, Right NO GROWTH AFTER 4 DAYS Anaerobic Blood Culture - Preliminary NO GROWTH AFTER 4 DAYS 03/08/19 06:49 Gram Stain - Final Arm, Left Med Orders - Current: Current Medications Acetaminophen (Tylenol) 650 mg PO Q4H PRN PRN Reason: Pain (Mild 1-3)/fever Last Admin: 03/06/19 15:22 Dose: 650 mg Bacitracin (Bacitracin Oint) 0 gm TOP TID PRN PRN Reason: Inflammation Last Admin: 03/05/19 08:31 Dose: 1 applic Meropenem 1 gm/ Sodium (Chloride) 100 mls @ 200 mls/hr IV Q8H [facility] Last Admin: 03/08/19 12:34 Dose: 200 mls/hr Vancomycin HCl 1.3 gm/ Sodium (Chloride) 250 mls @ 165 mls/hr IV Q12H [facility] Last Admin: 03/08/19 13:31 Dose: 165 mls/hr Lactobacillus Rhamnosus (Culturelle) 1 cap PO BID [facility] Last Admin: 03/08/19 09:37 Dose: 1 cap Ondansetron HCl (Zofran) 4 mg IV Q4H PRN PRN Reason: Nausea/Vomiting Oxycodone HCl (Oxycodone) 5 mg PO Q4H PRN PRN Reason: Pain (moderate 4-6) Polyethylene Glycol (Miralax) 17 gm PO DAILY PRN PRN Reason: Constipation Sodium Chloride (Saline Flush) 10 ml FLUSH ASDIRECTED PRN PRN Reason: Keep Vein Open Discontinued Medications Enoxaparin Sodium (Lovenox) 40 mg SUBCUT DAILY [facility] Last Admin: 03/05/19 03:16 Dose: Not Given Enoxaparin Sodium (Lovenox) 40 mg SUBCUT Q24H [facility] Last Admin: 03/05/19 17:00 Dose: Not Given Lactated Ringer's (Ringers, Lactated) 1,000 mls @ 999 mls/hr IV ASDIRECTED [facility] Last Admin: 03/04/19 16:41 Dose: 999 mls/hr Levofloxacin/Dextrose 750 mg/ (Premix) 150 mls @ 150 mls/hr IV ONETIME ONE Stop: 03/04/19 17:29 Last Admin: 03/04/19 16:47 Dose: 150 mls/hr Clindamycin Phosphate 900 mg/ (Sodium Chloride) 106 mls @ 212 mls/hr IV Q8H [facility] Last Admin: 03/04/19 17:56 Dose: 212 mls/hr Clindamycin Phosphate 900 mg/ (Sodium Chloride) 106 mls @ 200 mls/hr IV Q8H [facility] Last Admin: 03/07/19 10:21 Dose: 200 mls/hr Lactated Ringer's (Ringers, Lactated) 1,000 mls @ 125 mls/hr IV ASDIRECTED [facility] Last Admin: 03/05/19 04:48 Dose: 125 mls/hr Levofloxacin/Dextrose 750 mg/ (Premix) 150 mls @ 100 mls/hr IV Q24H [facility] Last Admin: 03/06/19 17:01 Dose: 100 mls/hr Magnesium Sulfate 2 gm/ Premix 50 mls @ 25 mls/hr IV ONETIME ONE Stop: 03/05/19 11:59 Last Admin: 03/05/19 10:21 Dose: 25 mls/hr Vancomycin HCl 1.75 gm/ Sodium (Chloride) 250 mls @ 165 mls/hr IV ONETIME ONE Stop: 03/07/19 15:30 Last Admin: 03/07/19 14:20 Dose: 165 mls/hr Vancomycin HCl (Vancomycin) 1 gm IV .PHARMACY TO DOSE [facility] Stop: 03/07/19 14:00 - Exam Quality Assessment: DVT Prophylaxis General: Alert, Oriented, Cooperative, No Acute Distress Lungs: Clear to Auscultation, Normal Respiratory Effort Cardiovascular: Regular Rate, Regular Rhythm GI/Abdominal Exam: Soft, Non-Tender, No Organomegaly, No Distention Extremities: Other (Good improvement in cellulitis over the last 24 hours with significant clearing.) - Problem List Review Problem List Initiated/Reviewed/Updated: Yes - My Orders Last 24 Hours: My Active Orders 03/08/19 02:00 Vancomycin 1.3 gm Sodium Chloride 0.9% [Normal Saline] 250 ml IV Q12H 03/09/19 13:30 CREATININE W/GFR [CHEM] Routine VANCOMYCIN TROUGH [CHEM] Timed - Plan Plan:: ASSESSMENT AND PLAN CELLULITIS LEFT ARM- secondary to dog bite, status post surgical repair wounds 7 days ago. Regarding good improvement in cellulitis over the last 24 hours -Blood and wound cultures pending -Saline lock IV -Continue IV vancomycin and meropenem, pending culture results -Surgical follow-up per Dr. Martinez MAINTENANCE ISSUES -DVT prophylaxis; scuds, patient refuses anticoagulation -GI prophylaxis; not indicated -Camacho catheter; not indicated -Nutrition; regular diet -Nicotine dependence; not required CODE STATUS-FULL CODE ADMISSION STATUS-patient will be admitted to inpatient status, expect at least a 2 night hospital stay for evaluation and management of problems as outlined above. At the time of this admission I do not reasonably expected evaluation and management of this problem will require more than a 96 hour hospital stay. DISPOSITION-anticipate discharge to home after the hospital stay. PRIMARY CARE PROVIDER-he is from the [facility] and receives health care there
[2019-03-09] MEDS: Vancomycin 1.3 GM in Sodium Chloride 0.9% 250 ML IV SCH (01:33)
[2019-03-09] MEDS: Meropenem 1 GM in Sodium Chloride 0.9% 100 ML IV SCH (05:22)
[2019-03-09] MEDS: Lactobacillus Rhamnosus GG (Probiotic) Cap PO SCH ×2 (10:07→21:15)
--- NOTE | 2019-03-09 13:41 | PCM.PN ---
- General Info Date of Service: 03/09/19 Subjective Update: Mr. Hardy is showing further improvement in cellulitis since yesterday with almost total resolution. Open wound reviewed earlier today and redressed by Dr. Martinez. Functional Status: Reports: Tolerating Diet, Ambulating, Urinating - Review of Systems General: Denies: Fever, Chills Pulmonary: Reports: No Symptoms Cardiovascular: Reports: No Symptoms Gastrointestinal: Reports: No Symptoms Skin: Reports: Other (Dressing in place left forearm) - Patient Data Vitals - Most Recent: Last Vital Signs Temp 97.4 F 03/09/19 13:00 Pulse 66 03/09/19 13:00 Resp 16 03/09/19 13:00 BP 152/72 H 03/09/19 13:00 Pulse Ox 97 03/09/19 13:00 Weight - Most Recent: 196 lb 13.965 oz I&O - Last 24 Hours: Intake & Output 03/08/19 03/09/19 03/09/19 22:59 06:59 14:59 Intake Total 900 590 50 Balance 900 590 50 [place] Results Last 24 Hours: Microbiology 03/08/19 06:49 Gram Stain - Final Arm, Left Wound Culture - Preliminary NO GROWTH AFTER 1 DAY 03/04/19 16:10 Aerobic Blood Culture - Preliminary Blood - Arm, Right NO GROWTH AFTER 4 DAYS Anaerobic Blood Culture - Preliminary NO GROWTH AFTER 4 DAYS 03/04/19 16:00 Aerobic Blood Culture - Preliminary Blood - Arm, Right NO GROWTH AFTER 4 DAYS Anaerobic Blood Culture - Preliminary NO GROWTH AFTER 4 DAYS Med Orders - Current: Current Medications Acetaminophen (Tylenol) 650 mg PO Q4H PRN PRN Reason: Pain (Mild 1-3)/fever Last Admin: 03/06/19 15:22 Dose: 650 mg Bacitracin (Bacitracin Oint) 0 gm TOP TID PRN PRN Reason: Inflammation Last Admin: 03/05/19 08:31 Dose: 1 applic Vancomycin HCl 1.3 gm/ Sodium (Chloride) 250 mls @ 165 mls/hr IV Q12H [facility] Last Admin: 03/09/19 01:33 Dose: 165 mls/hr Meropenem 1 gm/ Sodium (Chloride) 50 mls @ 100 mls/hr IV Q8H [facility] Last Admin: 03/09/19 13:20 Dose: 100 mls/hr Lactobacillus Rhamnosus (Culturelle) 1 cap PO BID [facility] Last Admin: 03/09/19 10:07 Dose: 1 cap Ondansetron HCl (Zofran) 4 mg IV Q4H PRN PRN Reason: Nausea/Vomiting Oxycodone HCl (Oxycodone) 5 mg PO Q4H PRN PRN Reason: Pain (moderate 4-6) Polyethylene Glycol (Miralax) 17 gm PO DAILY PRN PRN Reason: Constipation Sodium Chloride (Saline Flush) 10 ml FLUSH ASDIRECTED PRN PRN Reason: Keep Vein Open Discontinued Medications Enoxaparin Sodium (Lovenox) 40 mg SUBCUT DAILY [facility] Last Admin: 03/05/19 03:16 Dose: Not Given Enoxaparin Sodium (Lovenox) 40 mg SUBCUT Q24H [facility] Last Admin: 03/05/19 17:00 Dose: Not Given Lactated Ringer's (Ringers, Lactated) 1,000 mls @ 999 mls/hr IV ASDIRECTED [facility] Last Admin: 03/04/19 16:41 Dose: 999 mls/hr Levofloxacin/Dextrose 750 mg/ (Premix) 150 mls @ 150 mls/hr IV ONETIME ONE Stop: 03/04/19 17:29 Last Admin: 03/04/19 16:47 Dose: 150 mls/hr Clindamycin Phosphate 900 mg/ (Sodium Chloride) 106 mls @ 212 mls/hr IV Q8H [facility] Last Admin: 03/04/19 17:56 Dose: 212 mls/hr Clindamycin Phosphate 900 mg/ (Sodium Chloride) 106 mls @ 200 mls/hr IV Q8H [facility] Last Admin: 03/07/19 10:21 Dose: 200 mls/hr Lactated Ringer's (Ringers, Lactated) 1,000 mls @ 125 mls/hr IV ASDIRECTED [facility] Last Admin: 03/05/19 04:48 Dose: 125 mls/hr Levofloxacin/Dextrose 750 mg/ (Premix) 150 mls @ 100 mls/hr IV Q24H [facility] Last Admin: 03/06/19 17:01 Dose: 100 mls/hr Magnesium Sulfate 2 gm/ Premix 50 mls @ 25 mls/hr IV ONETIME ONE Stop: 03/05/19 11:59 Last Admin: 03/05/19 10:21 Dose: 25 mls/hr Meropenem 1 gm/ Sodium (Chloride) 100 mls @ 200 mls/hr IV Q8H [facility] Last Admin: 03/09/19 05:22 Dose: 200 mls/hr Vancomycin HCl 1.75 gm/ Sodium (Chloride) 250 mls @ 165 mls/hr IV ONETIME ONE Stop: 03/07/19 15:30 Last Admin: 03/07/19 14:20 Dose: 165 mls/hr Vancomycin HCl (Vancomycin) 1 gm IV .PHARMACY TO DOSE [facility] Stop: 03/07/19 14:00 - Exam Quality Assessment: DVT Prophylaxis General: Alert, Oriented, Cooperative, No Acute Distress Lungs: Clear to Auscultation, Normal Respiratory Effort Cardiovascular: Regular Rate, Regular Rhythm, No Murmurs GI/Abdominal Exam: Soft, Non-Tender, No Organomegaly, No Distention Extremities: Other (Dressing in place left forearm) Skin: Warm, Dry, Other (Almost total resolution of cellulitis left forearm and upper arm) - Problem List Review Problem List Initiated/Reviewed/Updated: Yes - My Orders Last 24 Hours: My Active Orders 03/09/19 13:00 Meropenem [Merrem] 1 gm Sodium Chloride 0.9% [Normal Saline] 50 ml IV Q8H 03/09/19 13:30 CREATININE W/GFR [CHEM] Routine VANCOMYCIN TROUGH [CHEM] Routine - Plan Plan:: ASSESSMENT AND PLAN CELLULITIS LEFT ARM- secondary to dog bite, status post surgical repair wounds 7 days ago. Most total resolution of cellulitis, plan for 1 additional day of IV antibiotic therapy and then discharged to home -Blood and wound cultures pending -Saline lock IV -Continue IV vancomycin and meropenem, pending culture results -Surgical follow-up per Dr. Martinez MAINTENANCE ISSUES -DVT prophylaxis; scuds, patient refuses anticoagulation -GI prophylaxis; not indicated -Camacho catheter; not indicated -Nutrition; regular diet -Nicotine dependence; not required CODE STATUS-FULL CODE ADMISSION STATUS-patient will be admitted to inpatient status, expect at least a 2 night hospital stay for evaluation and management of problems as outlined above. At the time of this admission I do not reasonably expected evaluation and management of this problem will require more than a 96 hour hospital stay. DISPOSITION-anticipate discharge to home after the hospital stay. PRIMARY CARE PROVIDER-he is from the [facility] and receives health care there
--- NOTE | 2019-03-10 11:06 | PCM.DCSUM1 ---
Discharge Summary - Hospital Course Brief History: Mr. Hardy is a 64-year-old gentleman who was admitted through the emergency room with swelling, erythema, and pain of the left upper extremity secondary to cellulitis from a dog bite. - Discharge Data Discharge Date: 03/10/19 Discharge Disposition: Home, Self-Care 01 Condition: Fair - Discharge Diagnosis/Problem(s) (1) Dog bite of forearm SNOMED Code(s): 931917743 ICD Code: S51.859A - OPEN BITE OF UNSPECIFIED FOREARM, INITIAL ENCOUNTER; W54.0XXA - BITTEN BY DOG, INITIAL ENCOUNTER Status: Acute Current Visit: No (2) Cellulitis of arm, left SNOMED Code(s): 448352743 ICD Code: L03.114 - CELLULITIS OF LEFT UPPER LIMB Status: Acute Priority : Medium Current Visit: Yes - Patient Summary/Data Consults: Consultations 03/04/19 18:48 Consult to Physician [CONS] Routine Consulting Provider: Obie Martinez Courtesy Call Completed to Consulting Physician: Yes Reason for Consult: Cellulitis secondary to dog bite Hospital Course: Mr. Hardy is a 64-year-old gentleman who was admitted through the emergency department with cellulitis of his left arm secondary to a dog bite. He was bit by his dog on February 28 and experience significant puncture wounds and laceration. He was seen and evaluated in the emergency department and wounds were surgically closed by Dr. Martinez. He is up-to-date with his tetanus vaccination. After the wounds were closed he was discharged to home on oral antibiotic therapy with Augmentin. Over the past 2 days has developed progressive erythema and swelling around the elbow and into the forearm. He has not had overt temperature elevation but has felt more weak and fatigued. On evaluation in the emergency department he was found to have obvious cellulitis. White blood cell count was normal, CRP elevated. Blood cultures were obtained and he was started on IV antibiotic therapy with levofloxacin and clindamycin. IV antibiotic therapy with levofloxacin and clindamycin was continued after admission, he was initially given IV fluids for hydration. Blood cultures were obtained at the time of admission and remained negative with no growth throughout his hospital stay. her was slow modest improvement over the first few days of hospitalization. He was noted to have some progression of cellulitis in the upper extremity extending more proximally outside of the zone of her original involvement. Because of this the clindamycin and levofloxacin were discontinued and he was placed on IV vancomycin and meropenem. One of the forearm wounds appeared to have some underlying fluid collection and this was opened by Dr. Martinez during the hospital stay. Cultures were obtained from the wound at that time but also showed no growth. After change in antibiotic therapy he was noted to have fairly rapid improvement and resolution of the cellulitis. At the time of discharge she was no evidence of residual cellulitis and wounds appeared to be healing well with no evidence of underlying active infection. He will be discharged to home on an additional 5 days of oral antibiotic therapy with metronidazole and Zyvox. He was started on probiotic therapy during hospitalization and this will be continued after discharge. Activity willbe as tolerated and he will resume his usual diet. Follow-up appointment will be scheduled with Dr. Martinez for March 13 at 10:30 AM. - Patient Instructions Diet: Usual Diet as Tolerated Activity: As Tolerated Other/Special Instructions: Please schedule follow-up appointment with Dr. Martinez on March 13 at 10:30 AM. - Discharge Plan *PRESCRIPTION DRUG MONITORING PROGRAM REVIEWED*: Not Applicable *COPY OF PRESCRIPTION DRUG MONITORING REPORT IN PATIENT BRITTA: Not Applicable Prescriptions/Med Rec: Lactobacillus Rhamnosus GG [Culturelle] 1 cap PO BID #60 cap Linezolid [Zyvox] 600 mg PO Q12H #10 tab metroNIDAZOLE [Flagyl] 500 mg PO Q8H #15 tab Home Medications: Home Meds Lactobacillus Rhamnosus GG [Culturelle] 1 cap PO BID #60 cap 03/10/19 [Rx] Linezolid [Zyvox] 600 mg PO Q12H #10 tab 03/10/19 [Rx] metroNIDAZOLE [Flagyl] 500 mg PO Q8H #15 tab 03/10/19 [Rx] Referrals: Obie Martinez MD [Physician] - - Discharge Summary/Plan Comment DC Time >30 min.: No - Patient Data Vitals - Most Recent: Last Vital Signs Temp 96.8 F 03/10/19 09:33 Pulse 76 03/10/19 09:33 Resp 16 03/10/19 09:33 BP 125/71 03/10/19 09:33 Pulse Ox 97 03/10/19 09:33 Weight - Most Recent: 196 lb 13.965 oz I&O - Last 24 hours: Intake & Output 03/09/19 03/10/19 03/10/19 22:59 06:59 14:59 Intake Total 1050 300 480 Balance 1050 300 480 Lab Results - Last 24 hrs: Laboratory Results - last 24 hr 03/09/19 Range/Units 13:35 Creatinine 1.0 (0.8-1.3) mg/dL Est Cr Clr Drug Dosing 77.06 mL/min Estimated GFR (MDRD) > 60 (>60) Vancomycin Trough 11.5 (10.0-20.0) ug/mL [facility] Results - Last 24 hrs: Microbiology 03/08/19 06:49 Gram Stain - Final Arm, Left Wound Culture - Preliminary NO GROWTH AFTER 2 DAYS 03/04/19 16:10 Aerobic Blood Culture - Final Blood - Arm, Right NO GROWTH AFTER 5 DAYS Anaerobic Blood Culture - Final NO GROWTH AFTER 5 DAYS 03/04/19 16:00 Aerobic Blood Culture - Final Blood - Arm, Right NO GROWTH AFTER 5 DAYS Anaerobic Blood Culture - Final NO GROWTH AFTER 5 DAYS Med Orders - Current: Current Medications Acetaminophen (Tylenol) 650 mg PO Q4H PRN PRN Reason: Pain (Mild 1-3)/fever Last Admin: 03/06/19 15:22 Dose: 650 mg Bacitracin (Bacitracin Oint) 0 gm TOP TID PRN PRN Reason: Inflammation Last Admin: 03/05/19 08:31 Dose: 1 applic Meropenem 1 gm/ Sodium (Chloride) 50 mls @ 100 mls/hr IV Q8H [facility] Last Admin: 03/10/19 05:22 Dose: 100 mls/hr Vancomycin HCl 1.5 gm/ Sodium (Chloride) 250 mls @ 167 mls/hr IV Q12H [facility] Last Admin: 03/10/19 01:38 Dose: 167 mls/hr Lactobacillus Rhamnosus (Culturelle) 1 cap PO BID [facility] Last Admin: 03/09/19 21:15 Dose: 1 cap Ondansetron HCl (Zofran) 4 mg IV Q4H PRN PRN Reason: Nausea/Vomiting Oxycodone HCl (Oxycodone) 5 mg PO Q4H PRN PRN Reason: Pain (moderate 4-6) Polyethylene Glycol (Miralax) 17 gm PO DAILY PRN PRN Reason: Constipation Sodium Chloride (Saline Flush) 10 ml FLUSH ASDIRECTED PRN PRN Reason: Keep Vein Open Discontinued Medications Enoxaparin Sodium (Lovenox) 40 mg SUBCUT DAILY [facility] Last Admin: 03/05/19 03:16 Dose: Not Given Enoxaparin Sodium (Lovenox) 40 mg SUBCUT Q24H [facility] Last Admin: 03/05/19 17:00 Dose: Not Given Lactated Ringer's (Ringers, Lactated) 1,000 mls @ 999 mls/hr IV ASDIRECTED [facility] Last Admin: 03/04/19 16:41 Dose: 999 mls/hr Levofloxacin/Dextrose 750 mg/ (Premix) 150 mls @ 150 mls/hr IV ONETIME ONE Stop: 03/04/19 17:29 Last Admin: 03/04/19 16:47 Dose: 150 mls/hr Clindamycin Phosphate 900 mg/ (Sodium Chloride) 106 mls @ 212 mls/hr IV Q8H [facility] Last Admin: 03/04/19 17:56 Dose: 212 mls/hr Clindamycin Phosphate 900 mg/ (Sodium Chloride) 106 mls @ 200 mls/hr IV Q8H [facility] Last Admin: 03/07/19 10:21 Dose: 200 mls/hr Lactated Ringer's (Ringers, Lactated) 1,000 mls @ 125 mls/hr IV ASDIRECTED [facility] Last Admin: 03/05/19 04:48 Dose: 125 mls/hr Levofloxacin/Dextrose 750 mg/ (Premix) 150 mls @ 100 mls/hr IV Q24H [facility] Last Admin: 03/06/19 17:01 Dose: 100 mls/hr Magnesium Sulfate 2 gm/ Premix 50 mls @ 25 mls/hr IV ONETIME ONE Stop: 03/05/19 11:59 Last Admin: 03/05/19 10:21 Dose: 25 mls/hr Meropenem 1 gm/ Sodium (Chloride) 100 mls @ 200 mls/hr IV Q8H [facility] Last Admin: 03/09/19 05:22 Dose: 200 mls/hr Vancomycin HCl 1.75 gm/ Sodium (Chloride) 250 mls @ 165 mls/hr IV ONETIME ONE Stop: 03/07/19 15:30 Last Admin: 03/07/19 14:20 Dose: 165 mls/hr Vancomycin HCl 1.3 gm/ Sodium (Chloride) 250 mls @ 165 mls/hr IV Q12H [facility] Last Admin: 03/09/19 01:33 Dose: 165 mls/hr Vancomycin HCl (Vancomycin) 1 gm IV .PHARMACY TO DOSE [facility] Stop: 03/07/19 14:00 - Exam General: Reports: Alert, Oriented, Cooperative, No Acute Distress Lungs: Reports: Clear to Auscultation, Normal Respiratory Effort Cardiovascular: Reports: Regular Rate, Regular Rhythm, No Murmurs GI/Abdominal Exam: Soft, Non-Tender, No Organomegaly, No Distention Skin: Reports: Other (cellulitis resolved, wounds healing well with no evidence of underlying active infection)
--- NOTE | 2019-03-11 11:35 | PN ---
DATE OF SERVICE: 03/09/2019 The patient has been afebrile with stable vital signs. The amount of cellulitis and edema in the arm was decreased quite a bit after opening the wound yesterday. We will continue the present antibiotics per Dr. Marsh and dressing changes. At this point, all he will need is 4x4s placed over the open area. Obie Martinez MD /[id number]
--- NOTE | 2019-03-11 12:35 | PN ---
DATE OF SERVICE: 03/10/2019 The patient has been afebrile with stable vital signs. The cellulitis in the forearm continues to decrease. I suspected he will likely be ready for discharge home on oral antibiotics either today or tomorrow, per Dr. Marsh. Obie Martinez MD /[id number]
== END 2019-03-10 11:40 | disposition home or self-care (01) | DRG 383 ==
LOC: JP.ED 15:50 → JP.MS 17:35
PROVIDERS: ADMIT Hospitalist; ATTEND Hospitalist
PROC: 2W4 Placement, Anatomical Regions, Packing (ICD-10-PCS; principal; 2019-03-08)
DX: L03.114 Cellulitis of left upper limb (principal); W54.0XXD Bitten by dog, subsequent encounter; S51.852D Open bite of left forearm, subsequent encounter; L53.9 Erythematous condition, unspecified
CPT/HCPCS: 36415; 80048; 80053; 80202; 82565; 83605; 83735; 85025; 86140; 87040; 87070; 87205; 96365; 99284-25; A9270-GY; J1650; J1956; J2185; J3370; J3475; J3490; J7030; J7050; J7120

== ENCOUNTER 2024-03-01 11:31 | Emergency (ER) | payer BC, MEDICARE ==
[2024-03-01 13:22] LABS: BASOPHILS ABSOLUTE AUTO 0.05 K/uL (0.00-0.10); BASOPHILS PERCENT AUTO 0.8 % (0.1-1.3); EOSINOPHILS ABSOLUTE AUTO 0.08 K/uL (0.00-0.40); EOSINOPHILS PERCENT AUTO 1.2 % (0.0-5.4); HEMATOCRIT 38.3 % (38.4-49.7); HEMOGLOBIN 13.8 g/dL (12.9-16.9); IMMATURE GRAN PERCENT AUTO 0.3 % (0.0-0.7); LYMPHOCYTES ABSOLUTE AUTO 0.84 K/uL (0.8-3.3); MEAN CORPUSCULAR HEMOGLOBIN 30.1 pg (31.6-35.5); MEAN CORPUSCULAR VOLUME 83.4 fL (81.4-99.0); MONOCYTES ABSOLUTE AUTO 0.79 K/uL (0.20-0.90); MONOCYTES PERCENT AUTO 12.2 % (3.3-12.6); NEUTROPHILS ABSOLUTE AUTO 4.67 K/uL (1.0-7.6); NEUTROPHILS PERCENT AUTO 72.5 % (40.0-78.1); PLATELET COUNT,PLT 195 K/uL (130-375); RED BLOOD CELL COUNT 4.59 M/uL (4.14-5.76); WHITE BLOOD CELL COUNT,WBC 6.5 K/uL (3.2-11.0)
[2024-03-01 13:23] LABS: IMMATURE GRAN ABSOLUTE AUTO 0.02 K/uL (0.00-0.23)
[2024-03-01 13:43] LABS: A/G RATIO 1.1 (1.2-2.2); ALANINE AMINOTRANSFERASE,ALT 70 U/L (12-78); ALBUMIN 3.6 g/dL (3.4-5.0); ALKALINE PHOSPHATASE 96 U/L (46-116); ASPARTATE AMNIOTRANSFERASE,AST 34 U/L (15-37); BILIRUBIN TOTAL 0.7 mg/dL (0.2-1.0); BLOOD UREA NITROGEN,BUN 18 mg/dL (7-18); CALCIUM 8.7 mg/dL (8.5-10.1); CARBON DIOXIDE,CO2 27 mmol/L (21-32); CHLORIDE,CL 104 mmol/L (100-108); CREATININE 1.1 mg/dL (0.8-1.3); EST CRCL DRUG DOSING (CG) 65.44 mL/min; ESTIMATED GFR 73 mL/min (>60); GLUCOSE RANDOM 107 mg/dL (74-106); POTASSIUM,K 4.4 mmol/L (3.6-5.2); PROTEIN TOTAL,TP 6.9 g/dL (6.4-8.2); SODIUM,NA 139 mmol/L (140-148)
[2024-03-01 13:48] LABS: ANION GAP 12.4 mmol/L (5.0-14.0)
[2024-03-01 13:49] LABS: C-REACTIVE PROTEIN < 0.50 mg/dL (<0.50)
== END 2024-03-01 14:19 | disposition home or self-care (01) ==
LOC: JP.ED 11:31
DX: K64.8 Other hemorrhoids (principal); Z79.899 Other long term (current) drug therapy
CPT/HCPCS: 36415; 80053; 83605; 85025; 86140; 99283